=== PATIENT | male | born 1960 | race Caucasian/White ===

== ENCOUNTER 2017-11-03 19:21 | Inpatient (IN) | payer MEDICARE, MEDICAID, OTHER ==
[~2017-11-03] VITALS: Ht 165.1 cm; Wt 77.5 kg
[~2017-11-03 19:21] MED LIST: CYA500T PO; FERR325T39 PO; FURO-150 PO; LACT10SO74 PO; OMEP-84 PO; ONDA8TAB6 PO; PROP10TA10 PO; SPIR25TA3 PO
[2017-11-03 19:55] LABS: BASOPHILS % (AUTO) 0.4 % (0-1); EOSINOPHILS # (AUTO) 0.1 X10'3 (0-0.9); EOSINOPHILS % (AUTO) 1.5 % (0-6); HEMATOCRIT 22.7 % (42.0-52.0); HEMOGLOBIN 7.5 g/dl (14.0-17.9); LYMPHOCYTES # (AUTO) 2.1 X10'3 (1.1-4.8); LYMPHOCYTES % (AUTO) 22.8 % (21-51); MEAN CORPUSCULAR HEMOGLOBIN 28.4 PG (27.0-31.0); MEAN CORPUSCULAR HGB CONC 33.1 % (33.0-36.5); MEAN CORPUSCULAR VOLUME 85.7 FL (78-98); MEAN PLATELET VOLUME 8.5 FL (7.4-10.4); MONOCYTES # (AUTO) 1.4 X10'3 (0-0.9); MONOCYTES % (AUTO) 15.1 % (2-12); NEUTROPHILS # (AUTO) 5.6 X10'3 (1.8-7.7); NEUTROPHILS % (AUTO) 60.2 % (42-75); PLATELET COUNT 322 X10'3 (140-440); RED BLOOD COUNT 2.65 X10'6 (4.70-6.10); RED CELL DISTRIBUTION WIDTH 16.7 % (11.5-14.5); WHITE BLOOD COUNT 9.2 X10'3 (4.5-11.0)
[2017-11-03 20:03] LABS: INR 1.3 INR; PROTHROMBIN TIME 13.2 SECONDS (9.0-12.0)
[2017-11-03 20:09] LABS: ALANINE AMINOTRANSFERASE 25 U/L (12-78); ALBUMIN 2.7 G/DL (3.4-5.0); ALBUMIN/GLOBULIN RATIO 0.6 (1.1-1.5); ALKALINE PHOSPHATASE 117 IU/L (46-116); ANION GAP 14 (8-16); ASPARTATE AMINO TRANSFERASE 26 U/L (10-37); BILIRUBIN,TOTAL 1.2 MG/DL (0.1-1.0); BLOOD UREA NITROGEN 26 MG/DL (7-18); CALCIUM 8.6 MG/DL (8.5-10.1); CHLORIDE 99 MMOL/L (99-107); CREATININE 1.37 MG/DL (0.60-1.10); GLUCOSE 165 MG/DL (70-104); SODIUM 137 MMOL/L (135-145); TOTAL CARBON DIOXIDE 24.3 MMOL/L (24-32); TOTAL PROTEIN 7.3 G/DL (6.4-8.2); eGFR 53 ML/MIN
[2017-11-03 20:14] LABS: POTASSIUM 2.6 MMOL/L (3.5-5.1)
[2017-11-03] MEDS ORDERED: potassium Cl 20 mEq SR tablet PO STA (20:19)
[2017-11-03] MEDS ORDERED: morphine 4 MG/ML inj SYRINge IV ONE (20:40)
[2017-11-03] MEDS ORDERED: ondansetron/PF 4mg/2ml inj IV ONE (20:40)
[2017-11-03] MEDS ORDERED: pantoprazole 40 MG vial IV ONE (20:40)
[2017-11-03] MEDS ORDERED: octreotide 100mcg/1 ml ampule IV ONE (20:40)
[2017-11-03] MEDS ORDERED: iohexol 300mg/ml 100ml inj. ONE (20:46)
[2017-11-03 21:00] LABS: PARTIAL THROMBOPLASTIN TIME 25 SECONDS (22-32)
[2017-11-03 21:05] LABS: CREATINE KINASE 114 U/L (39-308); LIPASE 477 U/L (73-393); MAGNESIUM 1.5 MG/DL (1.5-2.4)
[2017-11-03 21:15] LABS: CLARITY,URINE CLEAR (Clear); COLOR,URINE YELLOW (Yellow); GLUCOSE, URINE NEGATIVE (Neg); KETONES,URINE TRACE mg/dl (Neg); LEUKOCYTE ESTERASE ,URINE NEGATIVE (Neg); NITRITES, URINE NEGATIVE (Neg); OCCULT BLOOD,URINE NEGATIVE (Neg); PROTEIN,URINE TRACE mg/dl (Neg)
[2017-11-03 21:20] LABS: UA COLLECTION TYPE NON-SPECIFIED
[2017-11-03 21:24] LABS: MUCUS STRANDS FEW /LPF (Neg); SQUAMOUS EPITHELIAL CELL,UR MODERATE /LPF (FEW); WBC,URINE 0-4 /HPF (0-4)
[2017-11-03 21:25] LABS: BACTERIA,URINE FEW /HPF (Neg); HYALINE CASTS 0-3 /LPF (NEGATIVE); RBC,URINE 0-2 /HPF (0-2)
[2017-11-03] MEDS: potassium 10mEq/100ml NS w/LIDOcaine (10mg/bag) IV SCH ×2 (21:40→22:51)
[2017-11-03] MEDS: octreotide inj. 1,250 MCG in normal saline 250ml IV soln 243.75 ML IV SCH (21:41)
[2017-11-03] MEDS ORDERED: METF-98 (22:17)
[2017-11-03] MEDS ORDERED: POTA-84 (22:17)
[2017-11-03] MEDS ORDERED: FURO-149 (22:17)
[2017-11-03] MEDS ORDERED: FERR-119 (22:17)
[2017-11-03] MEDS ORDERED: AMLO5TAB (22:17)
[2017-11-03] MEDS ORDERED: ondansetron/PF 4mg/2ml inj IV PRN (23:10)
[2017-11-03] MEDS ORDERED: glucagon, human recombinant 1mg kit SUBCUT PRN (23:15)
[2017-11-03] MEDS ORDERED: insulin Lispro (HumaLOG) vial - multi-dose SQ SCH (23:15)
[2017-11-03] MEDS ORDERED: dextrose 50%-water 50ml dispensing syringe IV PRN ×2 (23:15)
[2017-11-03] MEDS ORDERED: MESSAGE TO PHARMACY PO ONE (23:15)
[2017-11-03] MEDS ORDERED: dextrose ORAL solution 15 GM/59 ML bottle PO PRN ×2 (23:15)
[2017-11-03 23:37] LABS: HEMOGLOBIN A1C 5.8 % (4.5-6.2)
[2017-11-04] VITALS (20 sets, daily range): BP systolic 101–132; BP diastolic 63–83
[2017-11-04] MEDS: lactulose 20gm/30ml cup PO SCH ×4 (01:54→20:09)
[2017-11-04] MEDS: normal saline 1000ml 1,000 ML IV SCH ×3 (01:55→18:43)
[2017-11-04 04:46] LABS: BASOPHILS # (AUTO) 0.1 X10'3 (0-0.2); BASOPHILS % (AUTO) 1.4 % (0-1); EOSINOPHILS # (AUTO) 0.2 X10'3 (0-0.9); EOSINOPHILS % (AUTO) 2.9 % (0-6); LYMPHOCYTES # (AUTO) 2.2 X10'3 (1.1-4.8); LYMPHOCYTES % (AUTO) 32.9 % (21-51); MEAN CORPUSCULAR HEMOGLOBIN 28.5 PG (27.0-31.0); MEAN CORPUSCULAR HGB CONC 33.6 % (33.0-36.5); MEAN CORPUSCULAR VOLUME 84.7 FL (78-98); MEAN PLATELET VOLUME 8.6 FL (7.4-10.4); MONOCYTES # (AUTO) 1.2 X10'3 (0-0.9); MONOCYTES % (AUTO) 18.7 % (2-12); NEUTROPHILS # (AUTO) 2.9 X10'3 (1.8-7.7); NEUTROPHILS % (AUTO) 44.1 % (42-75); PLATELET COUNT 254 X10'3 (140-440); RED BLOOD COUNT 2.41 X10'6 (4.70-6.10); RED CELL DISTRIBUTION WIDTH 16.1 % (11.5-14.5); WHITE BLOOD COUNT 6.7 X10'3 (4.5-11.0)
[2017-11-04 04:51] LABS: HEMATOCRIT 20.4 % (42.0-52.0); HEMOGLOBIN 6.9 g/dl (14.0-17.9)
[2017-11-04 04:56] LABS: ALBUMIN 2.6 G/DL (3.4-5.0); ANION GAP 9 (8-16); BLOOD UREA NITROGEN 26 MG/DL (7-18); BUN/CREATININE RATIO 22.2 (5.4-32.0); CALCIUM 8.6 MG/DL (8.5-10.1); CHLORIDE 104 MMOL/L (99-107); CREATININE 1.17 MG/DL (0.60-1.10); GLUCOSE 132 MG/DL (70-104); POTASSIUM 3.5 MMOL/L (3.5-5.1); SODIUM 139 MMOL/L (135-145); TOTAL CARBON DIOXIDE 26.3 MMOL/L (24-32); eGFR 64 ML/MIN
[2017-11-04 04:57] LABS: INR 1.2 INR; PROTHROMBIN TIME 12.7 SECONDS (9.0-12.0)
[2017-11-04] MEDS: pantoprazole 40 MG vial IV SCH ×2 (07:27→20:09)
[2017-11-04] MEDS: propranolol 10mg tablet PO SCH ×3 (08:00→20:09)
[2017-11-04] MEDS ORDERED: normal saline 1000ml 1,000 ML IV SCH (08:00)
[2017-11-04 11:32] LABS: HEMOGLOBIN 7.3 g/dl (14.0-17.9); MEAN CORPUSCULAR HEMOGLOBIN 28.2 PG (27.0-31.0); MEAN CORPUSCULAR HGB CONC 33.8 % (33.0-36.5); MEAN CORPUSCULAR VOLUME 83.4 FL (78-98); MEAN PLATELET VOLUME 8.3 FL (7.4-10.4); PLATELET COUNT 209 X10'3 (140-440); RED BLOOD COUNT 2.57 X10'6 (4.70-6.10); RED CELL DISTRIBUTION WIDTH 17.8 % (11.5-14.5); WHITE BLOOD COUNT 5.7 X10'3 (4.5-11.0)
[2017-11-04 11:35] LABS: HEMATOCRIT 21.4 % (42.0-52.0)
[2017-11-04] MEDS ORDERED: MIDAZolam 5mg/5ml vial ONE (16:02)
[2017-11-04] MEDS ORDERED: fentaNYL/PF 50MCG/1 ML 2ML syringe ONE (16:02)
[2017-11-04] MEDS ORDERED: LIDOcaine Viscous 15ml cup ONE (16:02)
[2017-11-04] MEDS ORDERED: epiNEPHrine 0.1mg/ml 10ml syringe ONE (16:57)
[2017-11-04 20:05] LABS: HEMATOCRIT 24.6 % (42.0-52.0); HEMOGLOBIN 8.3 g/dl (14.0-17.9); MEAN CORPUSCULAR HEMOGLOBIN 28.6 PG (27.0-31.0); MEAN CORPUSCULAR HGB CONC 33.6 % (33.0-36.5); MEAN PLATELET VOLUME 8.5 FL (7.4-10.4); PLATELET COUNT 205 X10'3 (140-440); RED CELL DISTRIBUTION WIDTH 17.2 % (11.5-14.5); WHITE BLOOD COUNT 6.9 X10'3 (4.5-11.0)
[2017-11-04] MEDS: insulin glargine (Lantus) pen - multi-dose SQ SCH (21:00)
[2017-11-04] MEDS: octreotide inj. 1,250 MCG in normal saline 250ml IV soln 243.75 ML IV SCH (23:16)
[2017-11-04 23:22] LABS: HEMATOCRIT 22.8 % (42.0-52.0); HEMOGLOBIN 7.6 g/dl (14.0-17.9); MEAN CORPUSCULAR HEMOGLOBIN 28.2 PG (27.0-31.0); MEAN CORPUSCULAR HGB CONC 33.4 % (33.0-36.5); MEAN CORPUSCULAR VOLUME 84.5 FL (78-98); MEAN PLATELET VOLUME 8.2 FL (7.4-10.4); PLATELET COUNT 199 X10'3 (140-440)
[2017-11-05] VITALS (43 sets, daily range): BP systolic 92–126; BP diastolic 46–76
[2017-11-05] MEDS: octreotide inj. 1,250 MCG in normal saline 250ml IV soln 243.75 ML IV SCH (01:15)
[2017-11-05] MEDS: lactulose 20gm/30ml cup PO SCH ×4 (02:06→20:07)
[2017-11-05 05:54] LABS: BASOPHILS # (AUTO) 0.1 X10'3 (0-0.2); BASOPHILS % (AUTO) 1.2 % (0-1); EOSINOPHILS # (AUTO) 0.2 X10'3 (0-0.9); EOSINOPHILS % (AUTO) 3.5 % (0-6); HEMOGLOBIN 7.4 g/dl (14.0-17.9); LYMPHOCYTES # (AUTO) 1.4 X10'3 (1.1-4.8); MEAN CORPUSCULAR HEMOGLOBIN 28.3 PG (27.0-31.0); MEAN CORPUSCULAR HGB CONC 33.4 % (33.0-36.5); MEAN CORPUSCULAR VOLUME 84.7 FL (78-98); MEAN PLATELET VOLUME 8.7 FL (7.4-10.4); MONOCYTES # (AUTO) 0.8 X10'3 (0-0.9); MONOCYTES % (AUTO) 12.5 % (2-12); NEUTROPHILS % (AUTO) 60.8 % (42-75); PLATELET COUNT 190 X10'3 (140-440); RED CELL DISTRIBUTION WIDTH 16.9 % (11.5-14.5); WHITE BLOOD COUNT 6.6 X10'3 (4.5-11.0)
[2017-11-05 05:56] LABS: ALBUMIN 2.2 G/DL (3.4-5.0); ANION GAP 8 (8-16); BLOOD UREA NITROGEN 15 MG/DL (7-18); BUN/CREATININE RATIO 17.9 (5.4-32.0); CALCIUM 7.9 MG/DL (8.5-10.1); CHLORIDE 106 MMOL/L (99-107); CREATININE 0.84 MG/DL (0.60-1.10); GLUCOSE 119 MG/DL (70-104); POTASSIUM 3.1 MMOL/L (3.5-5.1); SODIUM 139 MMOL/L (135-145); TOTAL CARBON DIOXIDE 24.6 MMOL/L (24-32); eGFR > 90 ML/MIN
[2017-11-05 06:07] LABS: INR 1.2 INR; PROTHROMBIN TIME 12.7 SECONDS (9.0-12.0)
[2017-11-05] MEDS: K and/or MAG REPLACEMENT MC SCH (08:00)
[2017-11-05] MEDS: propranolol 10mg tablet PO SCH ×3 (08:00→20:08)
[2017-11-05] MEDS: pantoprazole 40 MG vial IV SCH ×2 (08:07→20:07)
[2017-11-05] MEDS ORDERED: LIDOcaine 1%/PF (10mg/ml) 5ml vial SQ ONE (10:05)
[2017-11-05] MEDS ORDERED: fentaNYL/PF 50MCG/1 ML 2ML syringe IV PRN (10:05)
[2017-11-05] MEDS ORDERED: midazolam 2 mg/2 ml injection IV PRN (10:05)
[2017-11-05] MEDS ORDERED: LIDOcaine 1%/PF (10mg/ml) 5ml vial ONE (10:05)
[2017-11-05] MEDS ORDERED: iohexol 300 MG/1 ML 50ml polymer ONE ×3 (10:05→11:39)
[2017-11-05] MEDS ORDERED: furosemide 40mg/4ml inj IV ONE (10:15)
[2017-11-05] MEDS ORDERED: potassium Cl 20 mEq SR tablet PO PRN (10:25)
[2017-11-05] MEDS ORDERED: magnesium 2GM in 50ml NS 50 ML IV PRN (10:25)
[2017-11-05] MEDS ORDERED: magnesium Cl slow-release 64mg tablet PO PRN (10:25)
[2017-11-05] MEDS ORDERED: magnesium 4gm in 100ml NS 100 ML IV PRN (10:25)
[2017-11-05] MEDS ORDERED: potassium Cl 40MEQ/NS 500ml 500 ML IV PRN ×2 (10:25)
[2017-11-05] MEDS ORDERED: midazolam 2 mg/2 ml injection ONE ×2 (10:32→10:56)
[2017-11-05] MEDS ORDERED: fentaNYL/PF 50MCG/1 ML 2ML syringe ONE ×2 (10:32→10:56)
[2017-11-05] MEDS ORDERED: heparin 1,000 UNITS/NS 500ml 500 ML ONE (10:32)
[2017-11-05] MEDS: potassium Cl 20 mEq SR tablet PO PRN ×3 (12:51→20:07)
[2017-11-05 14:44] LABS: HEMATOCRIT 29.9 % (42.0-52.0); HEMOGLOBIN 9.8 g/dl (14.0-17.9); MEAN CORPUSCULAR HEMOGLOBIN 28.2 PG (27.0-31.0); MEAN CORPUSCULAR HGB CONC 32.8 % (33.0-36.5); MEAN CORPUSCULAR VOLUME 85.9 FL (78-98); MEAN PLATELET VOLUME 8.9 FL (7.4-10.4); PLATELET COUNT 203 X10'3 (140-440); RED BLOOD COUNT 3.48 X10'6 (4.70-6.10); RED CELL DISTRIBUTION WIDTH 17.1 % (11.5-14.5); WHITE BLOOD COUNT 6.4 X10'3 (4.5-11.0)
[2017-11-05 17:31] LABS: HEMATOCRIT 28.9 % (42.0-52.0); HEMOGLOBIN 9.3 g/dl (14.0-17.9); MEAN CORPUSCULAR HEMOGLOBIN 27.9 PG (27.0-31.0); MEAN CORPUSCULAR HGB CONC 32.3 % (33.0-36.5); MEAN CORPUSCULAR VOLUME 86.6 FL (78-98); MEAN PLATELET VOLUME 8.6 FL (7.4-10.4); PLATELET COUNT 203 X10'3 (140-440); RED BLOOD COUNT 3.34 X10'6 (4.70-6.10); RED CELL DISTRIBUTION WIDTH 16.4 % (11.5-14.5); WHITE BLOOD COUNT 7.1 X10'3 (4.5-11.0)
[2017-11-05] MEDS: normal saline 1000ml 1,000 ML IV SCH (18:09)
[2017-11-05] MEDS: insulin glargine (Lantus) pen - multi-dose SQ SCH (21:00)
[2017-11-05 23:25] LABS: HEMATOCRIT 28.7 % (42.0-52.0); HEMOGLOBIN 9.5 g/dl (14.0-17.9); MEAN CORPUSCULAR HEMOGLOBIN 28.3 PG (27.0-31.0); MEAN CORPUSCULAR HGB CONC 33.1 % (33.0-36.5); MEAN CORPUSCULAR VOLUME 85.4 FL (78-98); MEAN PLATELET VOLUME 8.6 FL (7.4-10.4); PLATELET COUNT 238 X10'3 (140-440); RED BLOOD COUNT 3.36 X10'6 (4.70-6.10); RED CELL DISTRIBUTION WIDTH 16.9 % (11.5-14.5); WHITE BLOOD COUNT 9.5 X10'3 (4.5-11.0)
[2017-11-06] VITALS (22 sets, daily range): BP systolic 85–118; BP diastolic 41–67
[2017-11-06] MEDS: lactulose 20gm/30ml cup PO SCH ×4 (02:36→20:52)
[2017-11-06 05:12] LABS: BASOPHILS # (AUTO) 0.1 X10'3 (0-0.2); BASOPHILS % (AUTO) 0.9 % (0-1); EOSINOPHILS # (AUTO) 0.2 X10'3 (0-0.9); EOSINOPHILS % (AUTO) 3.3 % (0-6); HEMATOCRIT 26.3 % (42.0-52.0); HEMOGLOBIN 8.7 g/dl (14.0-17.9); LYMPHOCYTES # (AUTO) 1.5 X10'3 (1.1-4.8); LYMPHOCYTES % (AUTO) 23.1 % (21-51); MEAN CORPUSCULAR HEMOGLOBIN 28.4 PG (27.0-31.0); MEAN CORPUSCULAR HGB CONC 33.1 % (33.0-36.5); MEAN CORPUSCULAR VOLUME 85.7 FL (78-98); MEAN PLATELET VOLUME 8.6 FL (7.4-10.4); MONOCYTES # (AUTO) 0.9 X10'3 (0-0.9); MONOCYTES % (AUTO) 12.7 % (2-12); PLATELET COUNT 180 X10'3 (140-440); RED BLOOD COUNT 3.07 X10'6 (4.70-6.10); RED CELL DISTRIBUTION WIDTH 16.7 % (11.5-14.5); WHITE BLOOD COUNT 6.7 X10'3 (4.5-11.0)
[2017-11-06 05:25] LABS: ALBUMIN 2.2 G/DL (3.4-5.0); ANION GAP 7 (8-16); BLOOD UREA NITROGEN 10 MG/DL (7-18); BUN/CREATININE RATIO 11.6 (5.4-32.0); CALCIUM 7.8 MG/DL (8.5-10.1); CHLORIDE 107 MMOL/L (99-107); CREATININE 0.86 MG/DL (0.60-1.10); GLUCOSE 109 MG/DL (70-104); MAGNESIUM 1.5 MG/DL (1.5-2.4); POTASSIUM 3.1 MMOL/L (3.5-5.1); SODIUM 139 MMOL/L (135-145); TOTAL CARBON DIOXIDE 25.1 MMOL/L (24-32); eGFR > 90 ML/MIN
[2017-11-06 05:31] LABS: INR 1.2 INR; PROTHROMBIN TIME 12.7 SECONDS (9.0-12.0)
[2017-11-06] MEDS: potassium Cl 20 mEq SR tablet PO PRN ×3 (05:40→14:33)
[2017-11-06] MEDS: propranolol 10mg tablet PO SCH ×3 (07:24→20:50)
[2017-11-06] MEDS: K and/or MAG REPLACEMENT MC SCH (07:25)
[2017-11-06] MEDS: pantoprazole 40 MG vial IV SCH (07:29)
[2017-11-06] MEDS: normal saline 1000ml 1,000 ML IV SCH (07:31)
[2017-11-06 12:09] LABS: HEMATOCRIT 25.5 % (42.0-52.0); HEMOGLOBIN 8.4 g/dl (14.0-17.9); MEAN CORPUSCULAR HEMOGLOBIN 28.2 PG (27.0-31.0); MEAN CORPUSCULAR HGB CONC 32.8 % (33.0-36.5); MEAN CORPUSCULAR VOLUME 85.9 FL (78-98); MEAN PLATELET VOLUME 8.6 FL (7.4-10.4); PLATELET COUNT 171 X10'3 (140-440); RED BLOOD COUNT 2.97 X10'6 (4.70-6.10); RED CELL DISTRIBUTION WIDTH 16.6 % (11.5-14.5); WHITE BLOOD COUNT 6.8 X10'3 (4.5-11.0)
[2017-11-06] MEDS ORDERED: LIDOcaine 1%/PF (10mg/ml) 5ml vial ONE (14:21)
[2017-11-06 17:52] LABS: HEMATOCRIT 29.4 % (42.0-52.0); HEMOGLOBIN 9.8 g/dl (14.0-17.9); MEAN CORPUSCULAR HEMOGLOBIN 28.4 PG (27.0-31.0); MEAN CORPUSCULAR HGB CONC 33.3 % (33.0-36.5); MEAN CORPUSCULAR VOLUME 85.4 FL (78-98); MEAN PLATELET VOLUME 8.8 FL (7.4-10.4); PLATELET COUNT 220 X10'3 (140-440); RED BLOOD COUNT 3.44 X10'6 (4.70-6.10); RED CELL DISTRIBUTION WIDTH 16.6 % (11.5-14.5); WHITE BLOOD COUNT 7.6 X10'3 (4.5-11.0)
[2017-11-06] MEDS: insulin glargine (Lantus) pen - multi-dose SQ SCH (21:57)
[2017-11-07] VITALS: BP 121/65
[2017-11-07] MEDS: lactulose 20gm/30ml cup PO SCH ×3 (02:51→14:00)
[2017-11-07 05:43] LABS: BASOPHILS % (AUTO) 0.8 % (0-1); EOSINOPHILS # (AUTO) 0.2 X10'3 (0-0.9); EOSINOPHILS % (AUTO) 3.4 % (0-6); HEMOGLOBIN 8.4 g/dl (14.0-17.9); LYMPHOCYTES # (AUTO) 1.3 X10'3 (1.1-4.8); LYMPHOCYTES % (AUTO) 23.1 % (21-51); MEAN CORPUSCULAR HEMOGLOBIN 28.5 PG (27.0-31.0); MEAN CORPUSCULAR HGB CONC 33.6 % (33.0-36.5); MEAN CORPUSCULAR VOLUME 84.9 FL (78-98); MEAN PLATELET VOLUME 8.2 FL (7.4-10.4); MONOCYTES % (AUTO) 18.2 % (2-12); NEUTROPHILS # (AUTO) 3.1 X10'3 (1.8-7.7); NEUTROPHILS % (AUTO) 54.5 % (42-75); PLATELET COUNT 161 X10'3 (140-440); RED BLOOD COUNT 2.94 X10'6 (4.70-6.10); RED CELL DISTRIBUTION WIDTH 16.5 % (11.5-14.5); WHITE BLOOD COUNT 5.7 X10'3 (4.5-11.0)
[2017-11-07 05:58] LABS: INR 1.2 INR; PROTHROMBIN TIME 12.8 SECONDS (9.0-12.0)
[2017-11-07 06:07] LABS: ALBUMIN 2.1 G/DL (3.4-5.0); ANION GAP 8 (8-16); BLOOD UREA NITROGEN 8 MG/DL (7-18); BUN/CREATININE RATIO 8.6 (5.4-32.0); CALCIUM 7.9 MG/DL (8.5-10.1); CHLORIDE 109 MMOL/L (99-107); CREATININE 0.93 MG/DL (0.60-1.10); GLUCOSE 139 MG/DL (70-104); MAGNESIUM 1.6 MG/DL (1.5-2.4); POTASSIUM 3.3 MMOL/L (3.5-5.1); SODIUM 140 MMOL/L (135-145); TOTAL CARBON DIOXIDE 22.8 MMOL/L (24-32); eGFR 83 ML/MIN
[2017-11-07] MEDS ORDERED: pantoprazole 40mg Tablet.DR PO SCH (07:30)
[2017-11-07 08:00] VITALS: BP 96/49
[2017-11-07] MEDS: K and/or MAG REPLACEMENT MC SCH (08:00)
[2017-11-07] MEDS: propranolol 10mg tablet PO SCH ×2 (10:03→13:00)
[2017-11-07 11:00] VITALS: BP 129/65
[2017-11-07 13:17] LABS: HBSAG SCREEN Negative (Negative); HEPATITIS C ANTIBODY >11.0 s/co ratio (0.0-0.9)
[2017-11-07] MEDS ORDERED: PROP10TA10 PO (15:12)
[2017-11-07] MEDS ORDERED: SPIR25TA PO (15:12)
[2017-11-07] MEDS ORDERED: LACT10SO32 PO (15:12)
[2017-11-07] MEDS ORDERED: RIFA550T PO (15:12)
[2017-11-07] MEDS ORDERED: PANT40TA4 PO (15:12)
== END 2017-11-07 19:20 | disposition home or self-care (01) | DRG 981 ==
LOC: ER 19:22 → ED HOLD 23:07 → EDBEDREQ 11-04 11:11 → SUR 3N 11-04 12:00 → ICU 2S 11-04 17:50 → MED 3N 11-06 17:00
PROVIDERS: ADMIT Family Medicine; ATTEND Family Medicine
PROC: 30233N1 Transfusion of Nonautologous Red Blood Cells into Peripheral Vein, Percutaneous Approach (ICD-10-PCS; 2017-11-04)
PROC: 06L38ZZ Occlusion of Esophageal Vein, Via Natural or Artificial Opening Endoscopic (ICD-10-PCS; 2017-11-04)
PROC: 06L13DZ Occlusion of Splenic Vein with Intraluminal Device, Percutaneous Approach (ICD-10-PCS; principal; 2017-11-05)
PROC: 067 Lower Veins, Dilation (ICD-10-PCS; 2017-11-05)
PROC: B51T1ZZ Fluoroscopy of Portal and Splanchnic Veins using Low Osmolar Contrast (ICD-10-PCS; 2017-11-05)
PROC: 0W9G3ZZ Drainage of Peritoneal Cavity, Percutaneous Approach (ICD-10-PCS; 2017-11-06)
DX: K74.69 Other cirrhosis of liver (principal); I85.11 Secondary esophageal varices with bleeding; N17.9 Acute kidney failure, unspecified; E11.51 Type 2 diabetes mellitus with diabetic peripheral angiopathy without gangrene; E72.20 Disorder of urea cycle metabolism, unspecified; D62 Acute posthemorrhagic anemia; E11.65 Type 2 diabetes mellitus with hyperglycemia; K76.6 Portal hypertension; R18.8 Other ascites; E87.6 Hypokalemia; D63.8 Anemia in other chronic diseases classified elsewhere; B19.20 Unspecified viral hepatitis C without hepatic coma; K42.9 Umbilical hernia without obstruction or gangrene; I10 Essential (primary) hypertension; K72.90 Hepatic failure, unspecified without coma; E86.0 Dehydration; F17.200 Nicotine dependence, unspecified, uncomplicated; Z56.0 Unemployment, unspecified; Z79.84 Long term (current) use of oral hypoglycemic drugs; Z79.899 Other long term (current) drug therapy; Z80.1 Family history of malignant neoplasm of trachea, bronchus and lung; Z83.79 Family history of other diseases of the digestive system
CPT/HCPCS: 36415; 37183; 43244; 49083; 71045; 74176; 80048; 80053; 81001; 82140; 82550; 82948; 83036; 83690; 83735; 85025; 85027; 85610; 85730; 86803; 86885; 86900; 86901; 86920; 87070; 87340; 93005; 93975; 96365; 96375; 99152; 99153; 99285; A4620; A6213; A6219; A6257; A6402; C1725; C1769; C1894; C9113; G0500; J0171; J1644; J1815; J1940; J2001; J2250; J2270; J2354; J2405; J3010; J3480; J7030; P9016; Q9967

== ENCOUNTER 2017-12-16 15:38 | Emergency (ER) | payer MEDICARE, MEDICAID, OTHER ==
[~2017-12-16] VITALS: Ht 165.1 cm; Wt 100.0 kg
[~2017-12-16 15:38] MED LIST changes: -CYA500T PO; +FERR-119; -FERR325T39 PO; -FURO-150 PO; +LACT10SO32 PO; -LACT10SO74 PO; -OMEP-84 PO; -ONDA8TAB6 PO; +PANT40TA4 PO; +RIFA550T PO; +SPIR25TA PO; -SPIR25TA3 PO
[2017-12-16] MEDS ORDERED: normal saline 1000ML IV soln IVB ONE (16:35)
[2017-12-16 17:03] LABS: BASOPHILS % (AUTO) 0.5 % (0-1); EOSINOPHILS # (AUTO) 0.2 X10'3 (0-0.9); EOSINOPHILS % (AUTO) 2.6 % (0-6); HEMATOCRIT 30.6 % (42.0-52.0); HEMOGLOBIN 9.3 g/dl (14.0-17.9); LYMPHOCYTES # (AUTO) 1.1 X10'3 (1.1-4.8); LYMPHOCYTES % (AUTO) 16.5 % (21-51); MEAN CORPUSCULAR HEMOGLOBIN 23.9 PG (27.0-31.0); MEAN CORPUSCULAR HGB CONC 30.4 % (33.0-36.5); MEAN CORPUSCULAR VOLUME 78.5 FL (78-98); MEAN PLATELET VOLUME 8.3 FL (7.4-10.4); MONOCYTES # (AUTO) 0.9 X10'3 (0-0.9); MONOCYTES % (AUTO) 13.7 % (2-12); NEUTROPHILS # (AUTO) 4.6 X10'3 (1.8-7.7); NEUTROPHILS % (AUTO) 66.7 % (42-75); PLATELET COUNT 204 X10'3 (140-440); RED BLOOD COUNT 3.89 X10'6 (4.70-6.10); RED CELL DISTRIBUTION WIDTH 19.5 % (11.5-14.5); WHITE BLOOD COUNT 6.9 X10'3 (4.5-11.0)
[2017-12-16] MEDS ORDERED: AMLO5TAB4 PO (17:10)
[2017-12-16] MEDS ORDERED: FURO-150 PO (17:10)
[2017-12-16] MEDS ORDERED: POTA10TA19 PO (17:10)
[2017-12-16] MEDS ORDERED: METF500T PO (17:10)
[2017-12-16 17:23] LABS: ALANINE AMINOTRANSFERASE 32 U/L (12-78); ALBUMIN 2.7 G/DL (3.4-5.0); ALBUMIN/GLOBULIN RATIO 0.6 (1.1-1.5); ALKALINE PHOSPHATASE 111 IU/L (46-116); ANION GAP 11 (8-16); ASPARTATE AMINO TRANSFERASE 21 U/L (10-37); BILIRUBIN,TOTAL 1.2 MG/DL (0.1-1.0); BLOOD UREA NITROGEN 18 MG/DL (7-18); BUN/CREATININE RATIO 15.8 (5.4-32.0); CALCIUM 8.9 MG/DL (8.5-10.1); CHLORIDE 107 MMOL/L (99-107); CREATININE 1.14 MG/DL (0.60-1.10); GLUCOSE 129 MG/DL (70-104); LIPASE 171 U/L (73-393); POTASSIUM 3.5 MMOL/L (3.5-5.1); SODIUM 141 MMOL/L (135-145); TOTAL CARBON DIOXIDE 23.1 MMOL/L (24-32); TOTAL PROTEIN 7.1 G/DL (6.4-8.2); eGFR 66 ML/MIN
[2017-12-16] MEDS ORDERED: LIDOcaine 1.5% w/epinephrine 1:200,000 5ml ampul IJ ONE (18:50)
[2017-12-16] MEDS ORDERED: furosemide 10 MG/1 ML 10ml inj IV ONE (20:30)
[2017-12-16 20:47] VITALS: BP 122/74
== END 2017-12-16 21:05 | disposition home or self-care (01) ==
LOC: ER 15:39
DX: R18.8 Other ascites (principal); I10 Essential (primary) hypertension; E11.9 Type 2 diabetes mellitus without complications; Z86.19 Personal history of other infectious and parasitic diseases; Z98.890 Other specified postprocedural states; Z56.0 Unemployment, unspecified; Z79.84 Long term (current) use of oral hypoglycemic drugs; Z79.899 Other long term (current) drug therapy
CPT/HCPCS: 36415; 49083; 80053; 83690; 85025; 96374; 99285; A6449; J1940; J3490; J7030

== ENCOUNTER 2017-12-28 13:26 | Emergency (ER) | payer MEDICARE, MEDICAID, OTHER ==
[~2017-12-28] VITALS: Ht 162.6 cm; Wt 100.8 kg
[~2017-12-28 13:26] MED LIST changes: +AMLO5TAB4 PO; +FURO-150 PO; +METF500T PO; +POTA10TA19 PO; -RIFA550T PO; -SPIR25TA PO
[2017-12-28] MEDS ORDERED: albumin (human) 25% 100 ML IV solution IV ONE (14:05)
[2017-12-28 17:03] VITALS: BP 136/72
== END 2017-12-28 17:05 | disposition home or self-care (01) ==
LOC: ER 13:26
DX: R18.8 Other ascites (principal); R06.02 Shortness of breath; I10 Essential (primary) hypertension; E11.9 Type 2 diabetes mellitus without complications; B19.20 Unspecified viral hepatitis C without hepatic coma; Z98.890 Other specified postprocedural states; Z56.0 Unemployment, unspecified; Z79.84 Long term (current) use of oral hypoglycemic drugs; Z79.899 Other long term (current) drug therapy
CPT/HCPCS: 49083; 93005; 99285; P9047

== ENCOUNTER 2019-11-10 08:19 | Day surgery (SDC) | payer MEDICARE, MEDICAID ==
[2019-11-10] VITALS (22 sets, daily range): BP systolic 85–146; BP diastolic 44–98
[~2019-11-10] VITALS: Ht 165.1 cm; Wt 76.9 kg
[2019-11-10] MEDS ORDERED: normal saline 1000ml 1,000 ML IV SCH (08:40)
[2019-11-10] MEDS ORDERED: fentaNYL/PF 50MCG/1 ML 2ML syringe IV ONE (09:10)
[2019-11-10] MEDS ORDERED: MIDAZolam 5mg/ml 2ml vial IV ONE (09:10)
[2019-11-10] MEDS ORDERED: POTA-82 PO (09:13)
[2019-11-10 09:14] LABS: BASOPHILS # (AUTO) 0.1 X10'3 (0-0.2); BASOPHILS % (AUTO) 1.5 % (0-1); EOSINOPHILS # (AUTO) 0.2 X10'3 (0-0.9); EOSINOPHILS % (AUTO) 4.8 % (0-6); HEMATOCRIT 32.3 % (42.0-52.0); HEMOGLOBIN 10.6 g/dl (14.0-17.9); LYMPHOCYTES % (AUTO) 22.4 % (21-51); MEAN CORPUSCULAR HEMOGLOBIN 29.6 PG (27.0-31.0); MEAN CORPUSCULAR HGB CONC 32.7 g/dL (33.0-36.5); MEAN CORPUSCULAR VOLUME 90.5 FL (78-98); MEAN PLATELET VOLUME 8.3 FL (7.4-10.4); MONOCYTES # (AUTO) 0.7 X10'3 (0-0.9); MONOCYTES % (AUTO) 17.1 % (2-12); NEUTROPHILS # (AUTO) 2.3 X10'3 (1.8-7.7); NEUTROPHILS % (AUTO) 54.2 % (42-75); PLATELET COUNT 160 X10'3 (140-440); RED BLOOD COUNT 3.57 X10'6 (4.70-6.10); RED CELL DISTRIBUTION WIDTH 16.7 % (11.5-14.5); WHITE BLOOD COUNT 4.3 X10'3 (4.5-11.0)
[2019-11-10] MEDS ORDERED: ACET-2119 PO (09:14)
[2019-11-10] MEDS ORDERED: PROP10TA10 PO (09:18)
[2019-11-10 09:23] LABS: ALBUMIN 2.8 G/DL (3.4-5.0); ANION GAP 7 (8-16); BLOOD UREA NITROGEN 7 MG/DL (7-18); BUN/CREATININE RATIO 8.2 (5.4-32.0); CHLORIDE 107 MMOL/L (99-107); CREATININE 0.85 MG/DL (0.60-1.10); GLUCOSE 133 MG/DL (70-104); POTASSIUM 3.4 MMOL/L (3.5-5.1); SODIUM 138 MMOL/L (135-145); TOTAL CARBON DIOXIDE 23.6 MMOL/L (24-32); eGFR > 90 ML/MIN
[2019-11-10 09:36] LABS: TOTAL CELLS COUNTED 100
[2019-11-10 09:37] LABS: ANISOCYTOSIS 1+; PLATELET ESTIMATE NORMAL
[2019-11-10] MEDS ORDERED: midazolam 2 mg/2 ml injection ONE (09:47)
[2019-11-10] MEDS ORDERED: fentaNYL/PF 50MCG/1 ML 2ML syringe ONE ×2 (09:47→10:28)
[2019-11-10] MEDS ORDERED: gelatin sponge, absorbable (Gelfoam 12-7MM) sponge TP ONE (09:54)
[2019-11-10] MEDS ORDERED: iohexol 300mg/ml 100ml inj. ONE (10:38)
[2019-11-10] MEDS ORDERED: diphenhydrAMINE 50 mg/ml inj ONE (11:12)
== END 2019-11-10 15:30 | disposition home or self-care (01) ==
LOC: SSTAY O 08:19 → MED 3N 08:24 → SSTAY O 15:30
PROVIDERS: ATTEND Radiology Vascular & Interventional Radiology
DX: K74.60 Unspecified cirrhosis of liver (principal); Z72.89 Other problems related to lifestyle; Z79.899 Other long term (current) drug therapy
CPT/HCPCS: 36415; 47000; 77012; 80048; 85025; 85610; J1200; J2250; J3010; Q9967; 88307; 88313; 99152; 99153

== ENCOUNTER 2020-01-13 14:53 | Emergency (ER) | payer MEDICARE, MEDICAID ==
[~2020-01-13] VITALS: Ht 165.1 cm; Wt 70.0 kg
[~2020-01-13 14:53] MED LIST changes: +ACET-2119 PO; -FERR-119; -LACT10SO32 PO; -PANT40TA4 PO; +POTA-82 PO; -POTA10TA19 PO
[2020-01-13 14:54] VITALS: BP 128/70
== END 2020-01-13 16:40 | disposition home or self-care (01) ==
LOC: ER 14:53
DX: S80.812A Abrasion, left lower leg, initial encounter (principal); S40.812A Abrasion of left upper arm, initial encounter; Z98.890 Other specified postprocedural states; Z56.0 Unemployment, unspecified; Z79.899 Other long term (current) drug therapy; W19.XXXA Unspecified fall, initial encounter; Y93.89 Activity, other specified; Y92.89 Other specified places as the place of occurrence of the external cause; Y99.8 Other external cause status
CPT/HCPCS: 99284

== ENCOUNTER 2020-01-30 13:51 | Emergency (ER) | payer MEDICARE, MEDICAID ==
[~2020-01-30] VITALS: Ht 170.2 cm; Wt 79.5 kg
[2020-01-30 14:00] VITALS: BP 131/63
[2020-01-30] MEDS ORDERED: AZIT500T9 PO (15:29)
== END 2020-01-30 15:52 | disposition home or self-care (01) ==
LOC: ER 13:52
DX: R05 Cough (principal); Z20.828 Contact with and (suspected) exposure to other viral communicable diseases; Z98.890 Other specified postprocedural states; Z72.89 Other problems related to lifestyle; Z56.0 Unemployment, unspecified; Z79.899 Other long term (current) drug therapy
CPT/HCPCS: 36415; 71045; 99284; U0003; 99283

== ENCOUNTER 2020-03-02 11:40 | Emergency (ER) | payer MEDICARE, MEDICAID ==
[~2020-03-02] VITALS: Ht 166.4 cm; Wt 84.2 kg
[~2020-03-02 11:40] MED LIST changes: +AZIT500T9 PO
[2020-03-02 11:44] VITALS: BP 134/99
[2020-03-02] MEDS ORDERED: HYDROcodone/acetaminophen 10/325mg tab PO ONE (14:25)
[2020-03-02] MEDS ORDERED: HYDR-3973 PO (14:29)
== END 2020-03-02 15:49 | disposition home or self-care (01) ==
LOC: ER 11:41
DX: S60.221A Contusion of right hand, initial encounter (principal); S63.501A Unspecified sprain of right wrist, initial encounter; Z98.890 Other specified postprocedural states; Z56.0 Unemployment, unspecified; Z79.2 Long term (current) use of antibiotics; Z79.899 Other long term (current) drug therapy; W19.XXXA Unspecified fall, initial encounter; Y93.89 Activity, other specified; Y92.89 Other specified places as the place of occurrence of the external cause; Y99.8 Other external cause status
CPT/HCPCS: 29125; 29130; 73110; 73130; 99284

== ENCOUNTER 2021-01-23 00:11 | Emergency (ER) | payer MEDICARE, MEDICAID ==
[~2021-01-23] VITALS: Ht 167.6 cm; Wt 92.8 kg
[2021-01-23] MEDS ORDERED: FURO40TA4 PO (00:43)
[2021-01-23] MEDS ORDERED: EPLE25TA4 PO (00:43)
[2021-01-23 01:10] LABS: PARTIAL THROMBOPLASTIN TIME 30 SECONDS (22-32)
[2021-01-23 01:13] LABS: ALANINE AMINOTRANSFERASE 23 U/L (12-78); ALBUMIN 1.9 G/DL (3.4-5.0); ALBUMIN/GLOBULIN RATIO 0.4 (1.1-1.5); ALKALINE PHOSPHATASE 103 IU/L (46-116); ANION GAP 7 (8-16); ASPARTATE AMINO TRANSFERASE 41 U/L (10-37); BILIRUBIN,TOTAL 1.9 MG/DL (0.1-1.0); BLOOD UREA NITROGEN 14 MG/DL (7-18); BUN/CREATININE RATIO 11.9 (5.4-32.0); CALCIUM 8.3 MG/DL (8.5-10.1); CHLORIDE 101 MMOL/L (99-107); CREATININE 1.18 MG/DL (0.60-1.10); GLUCOSE 144 MG/DL (70-104); POTASSIUM 3.6 MMOL/L (3.5-5.1); SODIUM 131 MMOL/L (135-145); TOTAL CARBON DIOXIDE 22.6 MMOL/L (24-32); TOTAL PROTEIN 6.7 G/DL (6.4-8.2); eGFR 63 ML/MIN
[2021-01-23 01:29] LABS: BASOPHILS # (AUTO) 0.1 X10'3 (0-0.2); BASOPHILS % (AUTO) 1.1 % (0-1); EOSINOPHILS # (AUTO) 0.1 X10'3 (0-0.9); EOSINOPHILS % (AUTO) 2.1 % (0-6); HEMATOCRIT 26.7 % (42.0-52.0); HEMOGLOBIN 8.8 g/dl (14.0-17.9); LYMPHOCYTES # (AUTO) 0.9 X10'3 (1.1-4.8); LYMPHOCYTES % (AUTO) 14.4 % (21-51); MEAN CORPUSCULAR HEMOGLOBIN 27.5 PG (27.0-31.0); MEAN CORPUSCULAR HGB CONC 32.9 g/dL (33.0-36.5); MEAN CORPUSCULAR VOLUME 83.6 FL (78-98); MEAN PLATELET VOLUME 7.4 FL (7.4-10.4); MONOCYTES # (AUTO) 1.2 X10'3 (0-0.9); MONOCYTES % (AUTO) 19.7 % (2-12); NEUTROPHILS # (AUTO) 3.9 X10'3 (1.8-7.7); NEUTROPHILS % (AUTO) 62.7 % (42-75); PLATELET COUNT 161 X10'3 (140-440); RED BLOOD COUNT 3.19 X10'6 (4.70-6.10); WHITE BLOOD COUNT 6.2 X10'3 (4.5-11.0)
[2021-01-23 04:28] LABS: BANDS% (MANUAL) 2 % (0-10); LYMPHOCYTES % (MANUAL) 13 % (21-51); NEUTROPHILS % (MANUAL) 73 % (42-75); TOTAL CELLS COUNTED 100
[2021-01-23 04:29] LABS: ANISOCYTOSIS 2+; EOSINOPHILS % (MANUAL) 3 % (0-6); MONOCYTES % (MANUAL) 9 % (2-12); PLATELET ESTIMATE NORMAL
[2021-01-23 04:30] LABS: SMUDGE CELLS 1+
[2021-01-23 05:40] LABS: CLARITY,URINE CLEAR (Clear); COLOR,URINE YELLOW (Yellow); GLUCOSE, URINE NEGATIVE (Neg); KETONES,URINE NEGATIVE (Neg); LEUKOCYTE ESTERASE ,URINE NEGATIVE (Neg); NITRITES, URINE NEGATIVE (Neg); OCCULT BLOOD,URINE NEGATIVE (Neg); PROTEIN,URINE NEGATIVE (Neg)
[2021-01-23 05:42] LABS: UA COLLECTION TYPE URINAL
[2021-01-23] MEDS ORDERED: pantoprazole 40MG/NS 100ML BAG 100 ML IV SCH (06:00)
[2021-01-23 07:35] LABS: BASOPHILS # (AUTO) 0.1 X10'3 (0-0.2); BASOPHILS % (AUTO) 1.3 % (0-1); EOSINOPHILS # (AUTO) 0.2 X10'3 (0-0.9); HEMATOCRIT 27.1 % (42.0-52.0); HEMOGLOBIN 8.8 g/dl (14.0-17.9); LYMPHOCYTES # (AUTO) 1.1 X10'3 (1.1-4.8); LYMPHOCYTES % (AUTO) 20.5 % (21-51); MEAN CORPUSCULAR HEMOGLOBIN 27.4 PG (27.0-31.0); MEAN CORPUSCULAR HGB CONC 32.4 g/dL (33.0-36.5); MEAN CORPUSCULAR VOLUME 84.6 FL (78-98); MEAN PLATELET VOLUME 7.5 FL (7.4-10.4); MONOCYTES # (AUTO) 1.1 X10'3 (0-0.9); MONOCYTES % (AUTO) 20.4 % (2-12); NEUTROPHILS % (AUTO) 54.8 % (42-75); PLATELET COUNT 149 X10'3 (140-440); RED CELL DISTRIBUTION WIDTH 19.8 % (11.5-14.5); WHITE BLOOD COUNT 5.5 X10'3 (4.5-11.0)
[2021-01-23] MEDS ORDERED: PANT-47 PO (09:16)
[2021-01-23 09:33] LABS: ANISOCYTOSIS 2+; HYPOCHROMASIA 1+; PLATELET ESTIMATE NORMAL
[2021-01-23 09:34] LABS: ROULEAUX 1+
[2021-01-23 09:48] VITALS: BP 123/74
== END 2021-01-23 09:49 | disposition home or self-care (01) ==
LOC: ER 00:12
DX: R18.8 Other ascites (principal); K92.2 Gastrointestinal hemorrhage, unspecified; R14.0 Abdominal distension (gaseous); Z98.890 Other specified postprocedural states; Z56.0 Unemployment, unspecified; Z72.89 Other problems related to lifestyle; Z88.8 Allergy status to other drugs, medicaments and biological substances
CPT/HCPCS: 36415; 80053; 81003; 82140; 85007; 85008; 85025; 85610; 85730; 86885; 86900; 86901; 96365; 96366; 99285; C9113